=== PATIENT | female | born 1980 | race Hispanic/Latino ===

== ENCOUNTER → 2022-03-31 | Outpatient (CLI) | payer BC | END | disposition home or self-care (01) | LOC: RAH 10:29 | PROVIDERS: ATTEND Nurse Practitioner Adult Health | DX: Z12.31 Encounter for screening mammogram for malignant neoplasm of breast (principal) | CPT/HCPCS: 77067 ==

== ENCOUNTER → 2024-01-18 | Outpatient (CLI) | payer BC | END | disposition home or self-care (01) | LOC: RAH 11:26 | PROVIDERS: ATTEND Internal Medicine | DX: N93.9 Abnormal uterine and vaginal bleeding, unspecified (principal) | CPT/HCPCS: 76856 ==

== ENCOUNTER → 2024-01-21 | Outpatient (CLI) | payer BC | END | disposition home or self-care (01) | LOC: RAH 10:40 | PROVIDERS: ATTEND Internal Medicine | DX: Z12.31 Encounter for screening mammogram for malignant neoplasm of breast (principal) | CPT/HCPCS: 77067 ==